=== PATIENT | female | born 1995 ===

== ENCOUNTER 2016-12-11 18:45 | Emergency (ER) | payer BC ==
[2016-12-11 19:54] VITALS: BP 122/69
--- NOTE | 2016-12-11 19:57 | UC ---
Eye Complaint HPI - HPI Summary HPI Summary: pt c/o left eye, eye lid pain and swelling. Pt denies injury or FB. Pt does wear contact but denies and changes in contact use or care. denies any discharge or eye redness. - History of Current Complaint Chief Complaint: UCEye Stated Complaint: LEFT EYE COMPLAINT Time Seen by Provider: 12/11/16 19:56 Hx Obtained From: Patient Hx Last Menstrual Period: 11/26/16 ?: No Onset/Duration: Gradual Onset, Lasting Days Timing: Constant Severity Initially: Mild Severity Currently: Mild Location of Injury: Eye Lid (upper) - left Character: Dull Aggravating Factor(s): Other - touch Associated Signs And Symptoms: Positive: Swelling - Allergies/Home Medications Allergies/Adverse Reactions: Allergies Allergy/AdvReac Type Severity Reaction Status Date / Time No Known Allergies Allergy Verified 12/11/16 19:53 PMH/Surg Hx/FS Hx/Imm Hx Previously Healthy: Yes - Surgical History Surgical History: None - Family History Known Family History: Positive: Other - positive [facility] for URI - Social History Occupation: Student Lives: With Family Alcohol Use: Weekly Alcohol Amount: once a week Substance Use Type: None Smoking Status (MU): Never Smoked Tobacco - Immunization History Most Recent Influenza Vaccination: none Review of Systems Skin: Negative Eyes: Other - eye lid swelling and tenderness ENT: Negative Respiratory: Negative Cardiovascular: Negative Gastrointestinal: Negative Genitourinary: Negative Motor: Negative Neurovascular: Negative Musculoskeletal: Negative Neurological: Negative Psychological: Negative All Other Systems Reviewed And Are Negative: Yes Physical Exam Triage Information Reviewed: Yes Appearance: Well-Appearing Vital Signs: Initial Vital Signs Temp 99.4 F 12/11/16 19:48 Pulse 60 12/11/16 19:48 Resp 17 12/11/16 19:48 BP 122/69 12/11/16 19:48 Pulse Ox 100 12/11/16 19:48 Vital Signs Reviewed: Yes Eye Exam: Other Eyes: Positive: Other: - left eye lid mild swelling and tendernes with palpation , ENT Exam: Normal Neck exam: Normal Respiratory Exam: Normal Cardiovascular Exam: Normal Musculoskeletal Exam: Normal Neurological Exam: Normal Psychological Exam: Normal Skin Exam: Normal Eye Complaint Course/Dx - Differential Dx/Diagnosis Differential Diagnosis/HQI/PQRI: Corneal Abrasion, Foreign Body, Other - stye Provider Diagnoses: stye left upper eye lid Discharge - Discharge Plan Condition: Stable Disposition: HOME Prescriptions: Erythromycin OPHTH.OINT* [Ilotycin OPHTH.OINT*] 1 applic LEFT EYE BEDTIME #1 tube Patient Education Materials: Panfilo (ED) Referrals: [facility] [place] [facility] [Outside]
[2016-12-11] MEDS ORDERED: Fluorescein Sodium TOPICAL* 1 MG TEST ONE (19:58)
[2016-12-11] MEDS ORDERED: Tetracaine 0.5% OPTH.SOL 4 ML* 1 DROP BTL ONE (19:59)
== END 2016-12-11 20:16 | disposition home or self-care (01) ==
LOC: UCCORT 18:45
DX: H00.014 Hordeolum externum left upper eyelid (principal)
CPT/HCPCS: 99202; A9270-GY; G0463